=== PATIENT | male | born 1955 | race Caucasian/White ===

== ENCOUNTER 2022-10-09 10:45 | Day surgery (SDC) | payer OTHER ==
[~2022-10-09] VITALS: Ht 175.3 cm; Wt 75.2 kg
--- NOTE | 2022-10-09 11:03 | NUR ---
10/09/22 1103 Gael Warren CALL LIGHT WITHIN REACH. TETRACAINE IN AT 1059 AND PLEDGETT IN AT 1100 IN RIGHT EYE.
--- NOTE | 2022-10-09 11:47 | NUR ---
10/09/22 1147 Rach Boucher VISION BLUE 0.06% TRYPAN BLUE USED. LOT#[id number], EXP 02/2024
== END 2022-10-09 12:17 | disposition home or self-care (01) ==
LOC: ORSCSDS 10:45
PROVIDERS: Student in an Organized Health Care Education/Training Program
PROC: 08RJ3JZ Replacement of Right Lens with Synthetic Substitute, Percutaneous Approach (ICD-10-PCS; principal; 2022-10-09 12:00)
DX: H25.11 Age-related nuclear cataract, right eye (principal); Z79.82 Long term (current) use of aspirin; Z87.891 Personal history of nicotine dependence
CPT/HCPCS: J2001; J2250; J3010; J7040; V2632

== ENCOUNTER 2022-10-30 08:59 | Day surgery (SDC) | payer OTHER ==
[~2022-10-30] VITALS: Ht 177.8 cm; Wt 77.8 kg
[2022-10-30] MEDS ORDERED: ASPI81CH PO (09:12)
--- NOTE | 2022-10-30 09:19 | NUR ---
10/30/22 0919 Gael Warren CALL LIGHT WITHIN REACH.TETRACAINE IN AT 0914 IN THE LEFT EYE AND PLEDGETT AT 0916
== END 2022-10-30 11:40 | disposition home or self-care (01) ==
LOC: ORSCSDS 08:59
PROVIDERS: Student in an Organized Health Care Education/Training Program
PROC: 08RK3JZ Replacement of Left Lens with Synthetic Substitute, Percutaneous Approach (ICD-10-PCS; principal; 2022-10-30 11:00)
DX: H25.12 Age-related nuclear cataract, left eye (principal); F17.210 Nicotine dependence, cigarettes, uncomplicated
CPT/HCPCS: J1120; J2001; J2250; J3010; J7040; V2632